=== PATIENT | female | born 1980 | race Two or more races ===

== ENCOUNTER 2018-01-26 15:40 | Inpatient (IN) | payer OTHER ==
[2018-01-26] MEDS ORDERED: ELECTROLYTE-148 SOLN 500 ML IV SCH (16:20)
[2018-01-26] MEDS: ELECTROLYTE-148 SOLN 1,000 ML IV SCH ×2 (17:20→21:30)
[2018-01-26] MEDS ORDERED: AMPICILLIN SODIUM 2 GM VIAL ONE (17:35)
[2018-01-26] MEDS ORDERED: AMPICILLIN - 2 GM in SODIUM CHLORIDE 100 ML IVPB ONE (17:35)
[2018-01-26 17:58] VITALS: BMI 44.9
--- NOTE | 2018-01-26 18:25 | HP ---
Past Medical History - Primary Care Physician PCP:: Shaun Klein - Admission Chief Complaint: 39 weeks, previous c/d, rom, labor History of Present Illness: 37 yp f g 2 p4 0 2 1 39 weeks c/o contraction since 9 am today , had rom in L&D , cx closed 50 vx -3 mr, cler , fhr cat 1, regular contraction, , History Source: Patient Limitations to Obtaining History: No Limitations - Past Medical History ...: 4 ...Para: 1 ...Term: 1 ...: 0 ...Spon : 2 ...Induced : 0 ...LMP: 04/24/17 ... Weeks Gestation by Dates: 39.4 ...EDC by Dates: 01/29/18 ...EDC by Sono: 01/29/18 Additional OB History: previous c/s for PIH - Past Surgical History Hx Myomectomy: No Hx Transabdominal Cerclage: No - Smoking History Smoking history: Never smoked Have you smoked in the past 12 months: No Aproximately how many cigarettes per day: 2 - Alcohol/Substance Use Hx Alcohol Use: No - Social History History of Recent Travel: No Home Medications - Allergies Allergies/Adverse Reactions: Allergies Allergy/AdvReac Type Severity Reaction Status Date / Time No Known Allergies Allergy Verified 01/26/18 16:54 - Home Medications Home Medications: Ambulatory Orders Vit Calc,Iron,Folic [ Vitamins] 1 each PO DAILY 12/11/17 Review of Systems - Review of Systems Constitutional: reports: No Symptoms Eyes: reports: No Symptoms HENT: reports: No Symptoms Neck: reports: No Symptoms Cardiovascular: reports: No Symptoms Respiratory: reports: No Symptoms Gastrointestinal: reports: No Symptoms Genitourinary: reports: No Symptoms Breasts: reports: No Symptoms Reported Musculoskeletal: reports: No Symptoms Integumentary: reports: No Symptoms Neurological: reports: No Symptoms Endocrine: reports: No Symptoms Hematology/Lymphatic: reports: No Symptoms Psychiatric: reports: No Symptoms Physical Exam - Maternity Vital Signs: Vital Signs Temperature 99.1 F 01/26/18 17:57 Pulse Rate 84 01/26/18 17:57 Respiratory Rate 20 01/26/18 17:57 Blood Pressure 129/59 L 01/26/18 17:57 O2 Sat by Pulse Oximetry (%) Constitutional: Yes: Obese Eyes: Yes: WNL HENT: Yes: WNL Neck: Yes: WNL Cardiovascular: Yes: WNL Breast(s): Yes: WNL - Abdominal Exam/OB Fundal Height: 40 Number of Fetuses: Single Presentation: Vertex Contractions: Yes Regularity: Regular Intensity: Mod/Strong Monitor Mode: External Heart Rate Location: [facility] Category: I Accelerations: Non-Uniform Decelerations: None - Vaginal Exam/OB Vaginal Bleediing: No Speculum Exam: No Dilatation (cm): closed Effacement (%): 50 Amniotic Membrane Status: Ruptured Amniotic Fluid: Yes: Clear Presentation: Vertex/Position Station: -3 - Physical Exam Extremities: Yes: WNL Edema: Yes Edema: LLE: Trace, RLE: Trace Deep Tendon Reflex Grade: Normal +2 Psychiatric: Yes: Alert Hemorrhage Risk Assessment - Risk Factors Medium Risk Factors: Yes: Prior , uterine surgery,or multiple laparotomies Risk Score: 1 Risk Level: Medium Risk Problem List - Problems (1) with 39 completed weeks gestation Code(s): Z3A.39 - 39 WEEKS GESTATION OF (2) Previous section complicating Code(s): O34.219 - MATERNAL CARE FOR UNSP TYPE SCAR FROM PREVIOUS DEL (3) First stage of labor established Code(s): [id number] - Assessment/Plan admit . [facility]
[2018-01-26 19:18] LABS: BASO % 0.8 % (0-2.0); EOS % 0.7 % (0-4.5); HEMATOCRIT 38.3 % (32.4-45.2); HEMOGLOBIN 12.6 GM/dL (10.7-15.3); LYMPH % 15.8 % (8-40); MCH 28.6 pg (25.7-33.7); MEAN CELL VOLUME 86.8 fl (80-96); MEAN PLT VOLUME 8.7 fl (7.5-11.1); MONO % 7.8 % (3.8-10.2); NEUT % 74.9 % (42.8-82.8); PLATELET COUNT 204 K/MM3 (134-434); RBC 4.41 M/mm3 (3.60-5.2); RDW 15.5 % (11.6-15.6); WHITE BLOOD COUNT 11.3 K/mm3 (4.0-10.0)
[2018-01-26] MEDS ORDERED: AMPICILLIN - 1 GM in SODIUM CHLORIDE 100 ML IVPB SCH (19:45)
[2018-01-26 19:47] LABS: ANION GAP 8 MMOL/L (8-16); BLOOD UREA NITROGEN 7 mg/dL (7-18); CALCIUM 8.7 mg/dL (8.5-10.1); CHLORIDE 109 mmol/L (98-107); CO2 22 mmol/L (21-32); CREATININE 0.4 mg/dL (0.55-1.3); GLUCOSE,RANDOM 87 mg/dL (74-106); POTASSIUM 3.8 mmol/L (3.5-5.1); SODIUM 139 mmol/L (136-145)
[2018-01-26 20:24] LABS: INR 0.93 (0.83-1.09)
--- NOTE | 2018-01-26 20:53 | PN ---
Progress Note (short form) - Note Progress Note: cx closed -3, mr, contraction q2 min, fhr cat 1 , Problem List - Problems (1) with 39 completed weeks gestation Code(s): Z3A.39 - 39 WEEKS GESTATION OF (2) Previous section complicating Code(s): O34.219 - MATERNAL CARE FOR UNSP TYPE SCAR FROM PREVIOUS DEL (3) First stage of labor established Code(s): IPI6019 -
[2018-01-26 21:01] LABS: ACTIVATED PTT 30.6 SECONDS (25.2-36.5)
[2018-01-26] MEDS: AMPICILLIN - 1 GM in SODIUM CHLORIDE 100 ML IVPB SCH (21:30)
[2018-01-26] MEDS ORDERED: AMPICILLIN SODIUM 1 GM VIAL ONE (21:32)
[2018-01-26] MEDS ORDERED: ONDANSETRON 4 MG/2 ML VIAL IVPUSH PRN (22:55)
[2018-01-26] MEDS ORDERED: morphine SULFATE/Preservative Free 0.5 MG/ML (1cc Syringe) ONE (23:01)
[2018-01-26] MEDS ORDERED: SODIUM CHLORIDE 0.9% P/F 10 ML VIAL IJ ONE (23:15)
[2018-01-26] MEDS ORDERED: ceFAZolin SODIUM 1 GM VIAL ONE (23:15)
[2018-01-26] MEDS ORDERED: KETOROLAC TROMETHAMINE 30 MG/1 ML VIAL ONE (23:17)
[2018-01-26] MEDS ORDERED: OXYTOCIN 10 UNITS/ML VIAL ONE (23:18)
[2018-01-26] MEDS: OXYTOCIN 20 UNITS in 0.9% NS 20 UNIT/1,000 ML INFUS.BAG IV SCH (23:38)
[2018-01-26 23:52] LABS: ARTERIAL BLD GAS O2 SATURATION 4.2 % (90-98.9); ARTERIAL BLOOD GAS BASE EXCESS -2.7 meq/l (-2-2); ARTERIAL BLOOD GAS PCO2 72.8 mmHg (35-45); ARTERIAL BLOOD GAS PO2 7.3 mmHg (80-100)
[2018-01-26 23:54] LABS: VENOUS PC02 58.3 mmHg (38-52); VENOUS PH 7.27 (7.32-7.42); VENOUS PO2 18.2 mmHg (28-48)
[2018-01-27] MEDS ORDERED: METHYLERGONOVINE MALEATE 0.2 MG/1 ML AMP IM PRN (00:19)
[2018-01-27] MEDS ORDERED: BENZOCAINE 20% 57 GM BOTTLE TP PRN (00:19)
[2018-01-27] MEDS ORDERED: diphenhydrAMINE HCL 25 MG CAPSULE (FP) PO PRN (00:19)
[2018-01-27] MEDS ORDERED: IBUPROFEN 800 MG/8 ML IJ IVPB PRN (00:19)
[2018-01-27] MEDS ORDERED: WITCH HAZEL 50% (TUCKS) 40 PAD/JAR PAD TP PRN (00:19)
[2018-01-27] MEDS ORDERED: BENZOCAINE 28 GM HEMORRHOIDAL OINTMENT PR PRN (00:19)
--- NOTE | 2018-01-27 00:27 | PN ---
Progress Note (short form) - Note Progress Note: 1045 pm cx clp, [id number] , advised repeat c/s. risks ,benefit discussed Problem List - Problems (1) with 39 completed weeks gestation Code(s): Z3A.39 - 39 WEEKS GESTATION OF (2) Previous section complicating Code(s): O34.219 - MATERNAL CARE FOR UNSP TYPE SCAR FROM PREVIOUS DEL (3) First stage of labor established Code(s): [id number] -
[2018-01-27] MEDS ORDERED: OXYTOCIN 20 UNITS in 0.9% NS 20 UNIT/1,000 ML INFUS.BAG IV SCH (00:30)
[2018-01-27] MEDS ORDERED: ROCURONIUM BROMIDE 50 MG/5 ML VIAL ONE (03:09)
[2018-01-27] MEDS: AMPICILLIN - 1 GM in SODIUM CHLORIDE 100 ML IVPB SCH (03:25)
[2018-01-27] MEDS ORDERED: ceFAZolin SODIUM 1 GM VIAL ONE ×2 (06:17→15:04)
[2018-01-27] MEDS ORDERED: DEXTROSE 5%-WATER - 50 ML IVPB ONE ×2 (06:17→15:04)
[2018-01-27] MEDS: CEFAZOLIN 1 GM in DEXTROSE 5%-WATER - 50 ML IVPB SCH ×2 (06:30→15:08)
--- NOTE | 2018-01-27 07:02 | PN ---
Progress Note (short form) - Note Progress Note: pod 1 doing well, no c/o CBC, BMP 01/26/18 19:00 01/26/18 19:00 Last Vital Signs Temp Pulse Resp BP Pulse Ox 99.2 F 86 18 108/55 L 100 01/27/18 06:00 01/27/18 06:00 01/27/18 06:00 01/27/18 06:00 01/27/18 01:45 abdomen soft, no distension, no cva incision dry, clean no calf tenderness plan ambulate, cbc advance diet Problem List - Problems (1) with 39 completed weeks gestation Code(s): Z3A.39 - 39 WEEKS GESTATION OF (2) Previous section complicating Code(s): O34.219 - MATERNAL CARE FOR UNSP TYPE SCAR FROM PREVIOUS DEL (3) First stage of labor established Code(s): [id number] -
[2018-01-27] MEDS: DEXTROSE 5%-LACTATED RINGERS 1,000 ML IV SCH (09:22)
--- NOTE | 2018-01-27 13:15 | PN ---
Progress Note, Physician Chief Complaint: s/p c section under combined spinal epidural anesthesia post op day one. History of Present Illness: duramorph for post op pain control - Current Medication List Current Medications: Active Medications Acetaminophen (Tylenol -) 650 mg PO Q4H PRN PRN Reason: PAIN LEVEL 1-5 Benzocaine (Americaine 20% [place] -) 1 spray TP PRN PRN PRN Reason: Pain - Topical Benzocaine (Americaine Ointment -) 1 applic OR PRN PRN PRN Reason: Pain - Topical Bisacodyl (Dulcolax Suppository -) 10 mg OR PRN PRN PRN Reason: CONSTIPATION Diphenhydramine HCl (Benadryl Injection -) 25 mg IVPUSH Q4H PRN PRN Reason: Pruritis Diphenhydramine HCl (Benadryl -) 25 mg PO Q8H PRN PRN Reason: FOR ITCHING Last Admin: 01/27/18 02:15 Dose: 25 mg Enoxaparin Sodium (Lovenox -) 40 mg SQ DAILY [facility] Cefazolin Sodium 1 gm/ (Dextrose) 50 mls @ 100 mls/hr IVPB Q8H [facility] Stop: 01/27/18 15:59 Last Admin: 01/27/18 06:30 Dose: 100 mls/hr Dextrose/Lactated Ringer's (D5-Lr -) 1,000 mls @ 125 mls/hr IV ASDIR [facility] Last Admin: 01/27/18 09:22 Dose: 125 mls/hr Oxytocin/Sodium Chloride (Normal Saline+20 Units Oxytocin -) 20 unit in 1,000 mls @ 125 mls/hr IV ASDIR [facility] Last Admin: 01/26/18 23:38 Dose: 125 mls/hr Ibuprofen (Motrin -) 600 mg PO Q4H PRN PRN Reason: PAIN LEVEL 1 - 3 Ibuprofen (Caldolor Injection -) 800 mg IVPB Q6H PRN PRN Reason: PAIN > 5 if PO not effective. Methylergonovine Maleate (Methergine Injection -) 0.2 mg IM Q4H PRN PRN Reason: EXCESSIVE BLEEDING Ondansetron HCl (Zofran Injection) 4 mg IVPUSH Q4H PRN PRN Reason: NAUSEA Oxycodone HCl (Roxicodone -) 5 mg PO Q4H PRN PRN Reason: PAIN LEVEL 4 - 6 Oxycodone HCl (Roxicodone -) 10 mg PO Q4H PRN PRN Reason: PAIN LEVEL 7 - 10 Senna/Docusate Sodium (Pericolace -) 2 tablet PO HS PRN PRN Reason: CONSTIPATION Simethicone (Mylicon -) 80 mg PO Q4H PRN PRN Reason: GAS Witch Maddi/Glycerin (Tucks Pads -) 1 pad TP PRN PRN PRN Reason: Pain - Topical - Objective Vital Signs: Vital Signs Temperature 98.6 F 01/27/18 08:00 Pulse Rate 82 01/27/18 08:00 Respiratory Rate 18 01/27/18 08:00 Blood Pressure 121/69 01/27/18 08:00 O2 Sat by Pulse Oximetry (%) 100 01/27/18 01:45 Constitutional: Yes: Well Nourished Cardiovascular: Yes: WNL Respiratory: Yes: WNL Gastrointestinal: Yes: WNL Labs: CBC, BMP 01/26/18 19:00 01/26/18 19:00 INR, PTT INR 0.93 (0.83-1.09) 01/26/18 19:00 Assessment/Plan Pain controlled, no nausea vomiting or other adverse anesthetic complications. dept of anesthesiology will sign off care at this time
[2018-01-27] MEDS: IBUPROFEN 600 MG TABLET (FP) PO PRN ×2 (13:32→20:53)
[2018-01-27] MEDS: ACETAMINOPHEN 325 MG TABLET (FP) PO PRN ×2 (13:33→20:53)
[2018-01-27] MEDS: SIMETHICONE 80 MG TAB.CHEW (FP) PO PRN (20:54)
[2018-01-28] MEDS ORDERED: BISACODYL 10 MG SUPP.RECT PR PRN (00:19)
[2018-01-28] MEDS: ACETAMINOPHEN 325 MG TABLET (FP) PO PRN ×4 (01:54→22:57)
[2018-01-28] MEDS: IBUPROFEN 600 MG TABLET (FP) PO PRN ×4 (01:54→18:25)
[2018-01-28 07:41] LABS: BASO % 0.3 % (0-2.0); EOS % 1.6 % (0-4.5); HEMATOCRIT 34.6 % (32.4-45.2); HEMOGLOBIN 11.4 GM/dL (10.7-15.3); MCHC 33.1 g/dl (32.0-36.0); MEAN CELL VOLUME 87.5 fl (80-96); MEAN PLT VOLUME 8.3 fl (7.5-11.1); MONO % 6.2 % (3.8-10.2); NEUT % 74.9 % (42.8-82.8); PLATELET COUNT 184 K/MM3 (134-434); RBC 3.95 M/mm3 (3.60-5.2); RDW 15.5 % (11.6-15.6); WHITE BLOOD COUNT 9.7 K/mm3 (4.0-10.0)
[2018-01-28] MEDS: SIMETHICONE 80 MG TAB.CHEW (FP) PO PRN ×4 (08:22→22:57)
[2018-01-28] MEDS: ENOXAPARIN NA (PORCINE) 40 MG/0.4 ML DISP.SYRIN SQ SCH (10:05)
[2018-01-28] MEDS: DEXTROSE 5%-LACTATED RINGERS 1,000 ML IV SCH (11:29)
[2018-01-28] MEDS: OXYTOCIN 20 UNITS in 0.9% NS 20 UNIT/1,000 ML INFUS.BAG IV SCH (11:30)
--- NOTE | 2018-01-28 14:06 | OP ---
DATE OF OPERATION: 01/26/2018 PREOPERATIVE DIAGNOSIS: 39 weeks, previous cesarian section, ruptured membrane, labor. Failure of vaginal after section and tachycardia. POSTOPERATIVE DIAGNOSIS: 39 weeks, previous cesarian section, ruptured membrane, labor. Failure of vaginal after section and tachycardia. Meconium amniotic fluid. SURGEON: Shaun Klein MD ANESTHESIA: Spinal. ANESTHESIOLOGIST: Talha Mcmahan MD ESTIMATED BLOOD LOSS: 500 mL. DESCRIPTION OF PROCEDURE: Patient was taken to the operating room, underwent adequate spinal anesthesia. Abdomen and perineum were prepped and draped. Pfannenstiel abdominal skin incision was made over the previous incision. Abdominal wall was cut layer by layer until peritoneum was exposed and incised. Upon opening abdominal cavity, lower uterine segment was identified and ureterovesical fold of peritoneum established. Bladder was pushed down. Then, with the lower blade of the [place] retractor in the pelvis, a low transverse uterine incision was made. Incision extended laterally. Amniotic sac was entered. Meconium amniotic fluid was noted. Head delivered. Nasopharynx was suctioned and live baby was delivered . Placenta was delivered manually. Uterine cavity was cleaned of all remaining tissue. Uterine incision was closed in 2 layers, first layer with 0 Biosyn continuous suture, the second layer with 0 Biosyn imbricating the first layer. Bladder flap was closed with 0 Biosyn continuous suture. Both tubes and ovaries were checked and were normal. No active bleeding was seen. All the lap pad, sponge, needle, and instrument counts were correct. Then the peritoneum was closed with 0 Biosyn continuous suture. Muscles were brought together with interrupted sutures of 0 Biosyn. Fascia was closed with 0 Biosyn continuous suture, subcutaneous fat with interrupted suture of 0 Biosyn, and skin was closed with 3-0 Vicryl subcuticular continuous suture. Patient tolerated the procedure well, left the OR in good condition. SHAUN KLEIN M.D. [id number]
[2018-01-28] MEDS: oxyCODONE HCL 5 MG TABLET PO PRN ×2 (18:25→22:57)
[2018-01-29] MEDS: SIMETHICONE 80 MG TAB.CHEW (FP) PO PRN ×4 (04:16→19:55)
[2018-01-29] MEDS: oxyCODONE HCL 5 MG TABLET PO PRN ×4 (04:16→19:55)
[2018-01-29] MEDS: ACETAMINOPHEN 325 MG TABLET (FP) PO PRN (04:17)
[2018-01-29] MEDS: OXYTOCIN 20 UNITS in 0.9% NS 20 UNIT/1,000 ML INFUS.BAG IV SCH (04:23)
[2018-01-29] MEDS: DEXTROSE 5%-LACTATED RINGERS 1,000 ML IV SCH (04:24)
[2018-01-29] MEDS: IBUPROFEN 600 MG TABLET (FP) PO PRN ×3 (08:34→19:55)
[2018-01-29] MEDS: ENOXAPARIN NA (PORCINE) 40 MG/0.4 ML DISP.SYRIN SQ SCH (10:52)
--- NOTE | 2018-01-29 16:58 | PN ---
Post Progress Note Post Day: 3 Type of Delivery: Repeat C/S Vital Signs: Vital Signs Temperature 98.8 F 01/29/18 09:27 Pulse Rate 82 01/29/18 09:27 Respiratory Rate 20 01/29/18 09:27 Blood Pressure 125/67 01/28/18 21:00 O2 Sat by Pulse Oximetry (%) 100 01/27/18 01:45 Breast Exam: Yes: Soft Uterus: Yes: Fundus Firm Abdomen/GI: Yes: Abdomen soft Lochia: Yes: Rubra Lochia, amount: Small Extremities: Yes: Calves non-tender Perineum: Yes: Intact Activity: Ambulating - Labs Labs: CBC WBC 9.7 K/mm3 (4.0-10.0) 01/28/18 07:02 RBC 3.95 M/mm3 (3.60-5.2) 01/28/18 07:02 Hgb 11.4 GM/dL (10.7-15.3) 01/28/18 07:02 Hct 34.6 % (32.4-45.2) 01/28/18 07:02 MCV 87.5 fl (80-96) 01/28/18 07:02 MCH 29.0 pg (25.7-33.7) 01/28/18 07:02 MCHC 33.1 g/dl (32.0-36.0) 01/28/18 07:02 RDW 15.5 % (11.6-15.6) 01/28/18 07:02 Plt Count 184 K/MM3 (134-434) 01/28/18 07:02 MPV 8.3 fl (7.5-11.1) 01/28/18 07:02 Absolute Neuts (auto) 7.3 K/mm3 (1.5-8.0) 01/28/18 07:02 Neutrophils % 74.9 % (42.8-82.8) 01/28/18 07:02 Lymphocytes % 17.0 % (8-40) 01/28/18 07:02 Monocytes % 6.2 % (3.8-10.2) 01/28/18 07:02 Eosinophils % 1.6 % (0-4.5) D 01/28/18 07:02 Basophils % 0.3 % (0-2.0) 01/28/18 07:02 Nucleated RBC % 0 % (0-0) 01/28/18 07:02 Assessment/Plan as aboove oob reg diet dc home tomorrow
[2018-01-29] MEDS ORDERED: SENNOSIDES/DOCUSATE COMBO (SENNA PLUS) TABLET (UD) PO PRN (22:00)
[2018-01-30] MEDS: IBUPROFEN 600 MG TABLET (FP) PO PRN ×2 (06:33→11:13)
[2018-01-30] MEDS: ACETAMINOPHEN 325 MG TABLET (FP) PO PRN ×2 (06:33→11:14)
[2018-01-30] MEDS: SIMETHICONE 80 MG TAB.CHEW (FP) PO PRN ×2 (06:33→11:13)
[2018-01-30 07:17] LABS: BASO % 0.2 % (0-2.0); EOS % 1.3 % (0-4.5); HEMATOCRIT 36.5 % (32.4-45.2); LYMPH % 14.7 % (8-40); MCH 28.7 pg (25.7-33.7); MCHC 32.8 g/dl (32.0-36.0); MEAN CELL VOLUME 87.6 fl (80-96); MEAN PLT VOLUME 8.1 fl (7.5-11.1); MONO % 4.8 % (3.8-10.2); PLATELET COUNT 229 K/MM3 (134-434); RBC 4.16 M/mm3 (3.60-5.2); RDW 15.9 % (11.6-15.6); WHITE BLOOD COUNT 8.9 K/mm3 (4.0-10.0)
[2018-01-30 07:57] VITALS: BP 101/48; PULSE 81; TEMP 99.4
[2018-01-30] MEDS: ENOXAPARIN NA (PORCINE) 40 MG/0.4 ML DISP.SYRIN SQ SCH (09:17)
[2018-01-30] MEDS ORDERED: BACITRACIN/POLYMYXIN B SULFATE 15 GM TUBE TP SCH (12:45)
--- NOTE | 2018-01-30 16:26 | DS ---
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: Vital Signs Temperature 99.4 F 01/30/18 07:56 Pulse Rate 81 01/30/18 07:56 Respiratory Rate 18 01/30/18 07:56 Blood Pressure 101/48 L 01/30/18 07:56 O2 Sat by Pulse Oximetry (%) 100 01/27/18 01:45 Constitutional: Yes: Well Nourished, No Distress, Calm Eyes: Yes: WNL, Conjunctiva Clear, EOM Intact HENT: Yes: WNL, Atraumatic, Normocephalic Neck: Yes: WNL, Supple, Trachea Midline Cardiovascular: Yes: WNL, Regular Rate and Rhythm Respiratory: Yes: WNL, Regular, CTA Bilaterally Gastrointestinal: Yes: WNL ...Rectal Exam: Yes: WNL Renal/: Yes: WNL External Genitalia: Yes: Normal ....Post : Yes: Uterus firm, Uterus non-tender, Slight lochia rubra Breast(s): Yes: WNL Musculoskeletal: Yes: WNL Extremities: Yes: WNL Edema: No Integumentary: Yes: WNL Wound/Incision: Yes: Clean/Dry, Well Approximated, Sutures Intact Neurological: Yes: WNL, Alert, Oriented ...Motor Strength: WNL Psychiatric: Yes: WNL, Alert, Oriented Labs: CBC, BMP 01/30/18 06:30 01/26/18 19:00 Delivery - Delivery Section: Repeat, Low Flap Transverse (no complication) Type of Anesthesia: Spinal Episiotomy/Laceration: None EBL (cc): 500 Delivery, Single - Stages of Labor Date 1st Stage Initiatied: 01/26/18 Time 1st Stage Initiated: 09:00 Date of Delivery: 01/26/18 Time of Delivery: 23:27 Time Placenta Delivered: 23:28 Placenta: Yes: Manual Removal - Condition of Equipment Manager/Telephone Interviewer Present: No Infant Gender: Female Weight: 8 lb 5 oz Position: Right, OT Total Hours ROM (Hrs/Mins): 6hrs 8min - 1 Minute Total Score: 9 5 Minutes Total Score: 9 - Feeding Plan Initial Plan: Elected not to breastfeed exclusively throughout hospitalization Discharge Summary Procedures: Principal: repeat LST c/s Hospital Course: no complication Condition: Good - Instructions Diet, Activity, Other Instructions: If fever, heavy bleeding or uncontrolled pain call MD Call MD if redness, or drainage from incision site. Follow up with MD in clinic on TuesdayFebruary [address] Tellez. Disposition: HOME - Home Medications Comprehensive Discharge Medication List: Ambulatory Orders Vit Calc,Iron,Folic [ Vitamins] 1 each PO DAILY 12/11/17 Bacitracin/Polymyxin B Sulfate [Bacitracin-Polymyxin Ointment] 15 gm TP TID 7 Days #1 oint...g. 01/30/18 Ibuprofen 600 mg PO Q6H PRN #30 tablet 01/30/18 Oxycodone HCl 5 mg PO PRN #15 tablet MDD 15 01/30/18
--- NOTE | 2018-02-01 14:12 | PATH ---
Surgical Pathology Report Patient Name: LALA ANGELA Med. Rec. 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 Specimen(s) Received PLACENTA Clinical History , 39.4 weeks, tachycardia, previous x1 Final Diagnosis PLACENTA: THIRD TRIMESTER PLACENTA WITH SEVERE ACUTE CHORIOAMNIONITIS. TRIVASCULAR CORD WITH ACUTE FUNISITIS. Electronically Signed Hailee Cooper M.D. Gross Description The specimen is received fresh labeled placenta and is a 536 gram, 17.0 x 14.5 x 3.0 cm. placenta with attached membranes and umbilical cord. The attached membranes are [place], translucent with focal opacities and insert marginally. The umbilical cord measures 21 cm. in length and averages 1.0 cm. in diameter. The cord inserts eccentrically, 5.5 cm. to the nearest margin. No true knots or strictures are identified. Cut surface of the umbilical cord reveals 3 vessels. The surface is calix-blue with minimal fibrin deposition and appropriate caliber vessels. The maternal surface is red-brown with focal defects. Sectioning reveals red-brown, spongy parenchyma. No lesions are identified. Ticket Counter sections are submitted in three cassettes as follows: 1- membrane rolls and umbilical cord; 2-3- full thickness sections of placenta. /01/31/2018 saudi01/31/2018
== END 2018-01-30 14:15 | disposition home or self-care (01) | DRG 540 ==
LOC: JDEL 15:40 → JLDR 17:20 → J3W 01-27 02:20
PROVIDERS: ADMIT Obstetrics & Gynecology; ATTEND Obstetrics & Gynecology
PROC: 10D00Z1 Extraction of Products of Conception, Low, Open Approach (ICD-10-PCS; principal; 2018-01-26)
DX: O76 Abnormality in fetal heart rate and rhythm complicating labor and delivery (principal); O34.211 Maternal care for low transverse scar from previous cesarean delivery; N85.8 Other specified noninflammatory disorders of uterus; Z3A.39 39 weeks gestation of pregnancy; Z37.0 Single live birth
CPT/HCPCS: 36415; 36600; 80048; 82803; 85025; 85610; 85730; 86593; 86850; 86900; 86901; 88307-TC